=== PATIENT | male | born 1980 | race Caucasian/White ===

== ENCOUNTER 2019-07-18 09:21 | Inpatient (IN) | payer MEDICAID ==
[~2019-07-18] VITALS: Ht 165.1 cm; Wt 70.5 kg
[~2019-07-18 09:21] MED LIST: DOCU-28 PO; HYDR25SU32 RC
[2019-07-18] MEDS ORDERED: normal saline 1000ML IV soln IV ONE (09:55)
[2019-07-18 10:13] LABS: BASOPHILS # (AUTO) 0.1 X10'3 (0-0.2); BASOPHILS % (AUTO) 0.7 % (0-1); EOSINOPHILS # (AUTO) 0.2 X10'3 (0-0.9); HEMATOCRIT 41.3 % (42.0-52.0); LYMPHOCYTES # (AUTO) 3.5 X10'3 (1.1-4.8); MEAN CORPUSCULAR HEMOGLOBIN 31.1 PG (27.0-31.0); MEAN CORPUSCULAR HGB CONC 33.8 g/dL (33.0-36.5); MEAN CORPUSCULAR VOLUME 91.9 FL (78-98); MEAN PLATELET VOLUME 6.5 FL (7.4-10.4); MONOCYTES # (AUTO) 1.4 X10'3 (0-0.9); MONOCYTES % (AUTO) 7.2 % (2-12); NEUTROPHILS # (AUTO) 14.3 X10'3 (1.8-7.7); NEUTROPHILS % (AUTO) 73.1 % (42-75); PLATELET COUNT 553 X10'3 (140-440); RED CELL DISTRIBUTION WIDTH 13.9 % (11.5-14.5); WHITE BLOOD COUNT 19.6 X10'3 (4.5-11.0)
[2019-07-18] MEDS ORDERED: vancomycin/NS 1 GM ADD-VANTAGE 250 ML IV ONE (10:20)
[2019-07-18] MEDS ORDERED: piperacillin/tazo 3.375gm/50ml 50 ML IV ONE (10:20)
[2019-07-18 10:30] LABS: ALANINE AMINOTRANSFERASE 38 U/L (12-78); ALBUMIN 3.2 G/DL (3.4-5.0); ALBUMIN/GLOBULIN RATIO 0.7 (1.1-1.5); ALKALINE PHOSPHATASE 106 IU/L (46-116); ASPARTATE AMINO TRANSFERASE 17 U/L (10-37); CALCIUM 9.1 MG/DL (8.5-10.1); CHLORIDE 102 MMOL/L (99-107); CREATININE 1.13 MG/DL (0.60-1.10); GLUCOSE 92 MG/DL (70-104); POTASSIUM 3.6 MMOL/L (3.5-5.1); SODIUM 137 MMOL/L (135-145); TOTAL PROTEIN 7.7 G/DL (6.4-8.2); eGFR 72 ML/MIN
[2019-07-18] MEDS ORDERED: iohexol 300mg/ml 100ml inj. ONE (10:33)
[2019-07-18] MEDS ORDERED: VANCOMYCIN 1gm/H2O 200ml PB 200 ML IV ONE (10:45)
[2019-07-18] MEDS ORDERED: morphine 4 MG/ML inj SYRINge IV ONE (11:00)
[2019-07-18 11:22] LABS: ANION GAP 11 (8-16); BILIRUBIN,TOTAL 0.7 MG/DL (0.1-1.0); BLOOD UREA NITROGEN 8 MG/DL (7-18); BUN/CREATININE RATIO 7.1 (5.4-32.0); TOTAL CARBON DIOXIDE 23.9 MMOL/L (24-32)
[2019-07-18] MEDS ORDERED: magnesium hydroxide 30ml (MOM) UD suspension PO PRN (11:40)
[2019-07-18] MEDS ORDERED: morphine 2 MG/ML inj. syringe IV PRN (11:40)
[2019-07-18] MEDS ORDERED: acetaminophen 325mg tablet PO PRN (11:40)
[2019-07-18] MEDS ORDERED: ondansetron/PF 4mg/2ml inj IV PRN (11:40)
[2019-07-18] MEDS ORDERED: mag hydrox/Alum hydrox/simeth 30ml oral suspension PO PRN (11:40)
[2019-07-18] MEDS ORDERED: NO HOME MEDS (12:13)
[2019-07-18] MEDS: normal saline 1000ml 1,000 ML IV SCH ×3 (12:30→22:18)
[2019-07-18] MEDS ORDERED: HYDROmorphone inj. 0.5 MG/0.5 ML DISP.SYRIN IV ONE (14:25)
[2019-07-18 18:00] VITALS: BP 99/69
[2019-07-18] MEDS: HYDROcodone/acetaminophen 5mg/325mg tablet PO PRN ×2 (18:42→23:58)
[2019-07-18] MEDS: heparin, porcine 5000 units/ml vial SQ SCH (20:00)
--- NOTE | 2019-07-18 20:31 | NUR ---
pt with no pain to buttock wound. remains on clears. bp 98/65. sttes he is having episodes of profuse sweating. temp 99.1 orally.
--- NOTE | 2019-07-18 20:51 | NUR ---
Patient in room ED 15 going to rom 355B. I have received report from From GAL Kay and had the opportunity to ask questions and assume patient care.
--- NOTE | 2019-07-18 20:52 | NUR ---
Pt is refusing heparin SQ stating that he does not want blood thinners prior to his surgery. Receiving RN made aware.
[2019-07-18 21:00] VITALS: BP 99/69
--- NOTE | 2019-07-18 21:20 | NUR ---
2100:Patient arrived on unit via gurney with tech transporting. Tech asked him if he was able to walk to bed and get out of gurney on his own. He said, "yes." Gurney was parked outside of room,it was locked and lowered, side rail was lowered and patient attempted to get up but he rolled and fell on his left knee and hand. We reached to help and he got up and walked to the bed. He has a small scratch on his left forearm. Patient stated that he was fine. There were not any other issues from the fall . Will continue to monitor.
[2019-07-18] MEDS: VANCOMYCIN 1gm/H2O 200ml PB 200 ML IV SCH (22:19)
[2019-07-18] MEDS ORDERED: VANCOMYCIN LEVEL IV ONE (22:30)
[2019-07-18] MEDS: piperacillin/tazo 4.5gm/100ml 100 ML IV SCH (23:55)
[2019-07-19] VITALS (15 sets, daily range): BP systolic 97–148; BP diastolic 58–86
[2019-07-19 05:40] LABS: BASOPHILS # (AUTO) 0.1 X10'3 (0-0.2); EOSINOPHILS # (AUTO) 0.4 X10'3 (0-0.9); EOSINOPHILS % (AUTO) 2.9 % (0-6); HEMATOCRIT 39.5 % (42.0-52.0); HEMOGLOBIN 13.4 g/dl (14.0-17.9); LYMPHOCYTES # (AUTO) 2.2 X10'3 (1.1-4.8); LYMPHOCYTES % (AUTO) 14.4 % (21-51); MEAN CORPUSCULAR HEMOGLOBIN 31.5 PG (27.0-31.0); MEAN CORPUSCULAR HGB CONC 33.9 g/dL (33.0-36.5); MEAN CORPUSCULAR VOLUME 93.2 FL (78-98); MEAN PLATELET VOLUME 6.8 FL (7.4-10.4); MONOCYTES # (AUTO) 1.1 X10'3 (0-0.9); MONOCYTES % (AUTO) 7.3 % (2-12); NEUTROPHILS # (AUTO) 11.2 X10'3 (1.8-7.7); NEUTROPHILS % (AUTO) 74.4 % (42-75); PLATELET COUNT 525 X10'3 (140-440); RED BLOOD COUNT 4.24 X10'6 (4.70-6.10); RED CELL DISTRIBUTION WIDTH 14.2 % (11.5-14.5)
[2019-07-19] MEDS: HYDROcodone/acetaminophen 5mg/325mg tablet PO PRN ×3 (06:01→22:01)
[2019-07-19 06:11] LABS: ALBUMIN 2.7 G/DL (3.4-5.0); ANION GAP 11 (8-16); BLOOD UREA NITROGEN 6 MG/DL (7-18); BUN/CREATININE RATIO 6.1 (5.4-32.0); CALCIUM 8.8 MG/DL (8.5-10.1); CHLORIDE 105 MMOL/L (99-107); CREATININE 0.98 MG/DL (0.60-1.10); GLUCOSE 91 MG/DL (70-104); POTASSIUM 3.4 MMOL/L (3.5-5.1); SODIUM 142 MMOL/L (135-145); TOTAL CARBON DIOXIDE 25.6 MMOL/L (24-32); eGFR 85 ML/MIN
--- NOTE | 2019-07-19 06:30 | NUR ---
Patient in room [facility]. I have received report from GAL MARTE and had the opportunity to ask questions and assume patient care.
--- NOTE | 2019-07-19 06:30 | NUR ---
Problems reprioritized. Patient report given, questions answered & plan of care reviewed with GAL Kim.
[2019-07-19] MEDS: heparin, porcine 5000 units/ml vial SQ SCH ×2 (08:00→19:58)
[2019-07-19] MEDS: piperacillin/tazo 4.5gm/100ml 100 ML IV SCH ×2 (08:11→18:19)
[2019-07-19] MEDS: VANCOMYCIN 1gm/H2O 200ml PB 200 ML IV SCH ×2 (12:08→22:28)
[2019-07-19] MEDS ORDERED: lactose-reduced food (Ensure Enlive) - 237ml bottle PO SCH (13:00)
--- NOTE | 2019-07-19 13:17 | NUR ---
Malnutrition consult: Pt admit w/ perineal/gluteal abscess hx recurrent abscesses same region past 3 years requiring prior debridement per MD. Possible sepsis but no clinical concern for sepsis per ER MD note. Pt/SO seen by RD for written/verbal high protein ed w/ RD contact information provided and report wt loss past 3 month r/t abscess which is impacting pt ability to stool, pass gas, and when he does stool it nunn r/t abscess blocking anus. Pt reports lactose intolerance on inability to eat solids at this time r/t anal blockage from abscess so requested full liquid diet. Lactose intolerance limits pt to essentially clear liquids regimen though pt is agreeable to vanilla ensure enlive TIDWM; MD notified. Pt does report sweets and vanilla flavor smells are not appetizing but willing to try ONS. Pending MD ONS verification prior to sending on trays. Pt possibly to OR today for debridement per RN but still unsure at this time. Pt declines additional food preferences at this time and states most broths too salty and he is thirsty. Unfortunately current NPO status exacerbates this. At this time pt has no edema, no significant weakness, likely mild wt loss though no visible signs of severe muscle/fat wasting present and current wt pt stated. Pt does not meet minimum malnutrition criteria at this time. Will continue to monitor for additional protein needs given wound healing. Rec: 1. advance diet per MD to low-residue given pt fear of solids w/ current abscess effecting BM's 2. vanilla ensure enlive TIDWM 3. bowel care as needed 4. weekly wts 5. MVI for wound healing needs Addendum: 07/19/19 at [address] Amended: Links added.
[2019-07-19] MEDS ORDERED: BUPIVAcaine/PF 2.5 mg/ml (0.25%) 30ml vial ONE (14:53)
[2019-07-19] MEDS ORDERED: BUPIVACAINE liposomal/PF 13.3 MG/ML vial IM ONE (14:53)
--- NOTE | 2019-07-19 15:16 | NUR ---
Report given to GAL South down in recovery. Patient taken via OR nursing staff for surgery with Dr. Gallegos. Blood glucose assessment showed 88. Patient stable for transfer.
[2019-07-19] MEDS ORDERED: fentaNYL/PF 50MCG/1 ML 2ML syringe ONE ×2 (15:26→16:38)
[2019-07-19] MEDS ORDERED: midazolam 2 mg/2 ml injection ONE (15:26)
[2019-07-19] MEDS ORDERED: methylene blue (5mg/ml) 50mg/10ml ampul IV ONE (15:49)
[2019-07-19] MEDS ORDERED: sevoflurane 250ml liquid IH ONE (16:10)
--- NOTE | 2019-07-19 17:20 | NUR ---
Received from OR via BED, accompanied by Anesthesiologist DR DODSON-- and report given by Anesthesiolgist. PATIENT A&OX4, DENIES PAIN, V/S WNL, NEUROVASCULAR CHECKS INTACT, 20G PIV RUE, SCD ON, RECTAL DRESSING/PACKING WITH GAUZE AND FISHNET SHORTS WITH NO ACTIVE DRAINAGE SEEN AT THIS TIME.
[2019-07-19] MEDS ORDERED: ringers solution, lacted 1,000 ML IV SCH (17:21)
[2019-07-19] MEDS ORDERED: meperidine/PF 25mg/ml syringe ONE (17:23)
[2019-07-19] MEDS ORDERED: ondansetron/PF 4mg/2ml inj IV PRN (17:25)
[2019-07-19] MEDS ORDERED: morphine 4 MG/ML inj SYRINge IV PRN ×2 (17:25)
[2019-07-19] MEDS ORDERED: proCHLORperazine 10 MG/2 ml inj IV PRN (17:25)
[2019-07-19] MEDS ORDERED: meperidine/PF 25mg/ml syringe IV PRN ×2 (17:25)
[2019-07-19] MEDS ORDERED: acetaminophen 1,000mg/100ml IV 100 ML IV ONE (17:30)
[2019-07-19] MEDS: meperidine/PF 25mg/ml syringe IV PRN ×2 (17:32→17:43)
[2019-07-19] MEDS ORDERED: propofol inj 20 ML IV ONE (17:44)
[2019-07-19] MEDS ORDERED: ondansetron/PF 4mg/2ml inj ONE (17:44)
[2019-07-19] MEDS ORDERED: glycopyrrolate 0.2mg/ml inj ONE (17:44)
[2019-07-19] MEDS ORDERED: rocuronium 10mg/ml inj IV ONE (17:44)
[2019-07-19] MEDS ORDERED: neostigmine methylsulfate 1 MG/ML 10ml vial ONE (17:44)
[2019-07-19] MEDS ORDERED: LIDOcaine 2% (20mg/ml) 5ml vial ONE (17:44)
[2019-07-19] MEDS ORDERED: dexamethasone sod phosphate 4mg/ml inj. ONE (17:44)
--- NOTE | 2019-07-19 18:00 | NUR ---
PATIENT A&OX4, DENIES PAIN, V/S WNL, NEUROVASCULAR CHECKS INTACT, 20G PIV RUE, SCD ON, RECTAL DRESSING/PACKING WITH GAUZE AND FISHNET SHORTS WITH NO ACTIVE DRAINAGE SEEN AT THIS TIME. PATIENT TAKEN TO 355A WITH ALL BELONGINGS AND HOOKED UP TO MONITORS IN ROOM AND REPORT GIVEN TO RN WHO HAS TAKEN OVER PATIENT CARE.
--- NOTE | 2019-07-19 18:06 | NUR ---
Received patient to the floor with GAL Christiansen at bedside. Patient reports tolerable pain, post op vital signs started, pt alert and oriented x4
--- NOTE | 2019-07-19 18:09 | NUR ---
Problems reprioritized. Patient report given, questions answered & plan of care reviewed with GAL Mak.
[2019-07-19] MEDS ORDERED: potassium CL 10mEq/100ml bag 100 ML IV PRN ×2 (18:25)
[2019-07-19] MEDS ORDERED: potassium Cl 20 mEq SR tablet PO PRN (18:25)
--- NOTE | 2019-07-19 18:35 | NUR ---
Patient in room [facility]. I have received report from GAL Guardado and had the opportunity to ask questions and assume patient care.
[2019-07-19] MEDS: HYDROmorphone inj. 0.5 MG/0.5 ML DISP.SYRIN IV PRN (18:40)
--- NOTE | 2019-07-19 18:40 | NUR ---
Problems reprioritized. Patient report given, questions answered & plan of care reviewed with GAL Mak.
[2019-07-19] MEDS: lactobacillus rhamnosus 10,000 MMU CELLS/CAPSULE PO SCH (19:49)
[2019-07-19] MEDS: normal saline 1000ml 1,000 ML IV SCH (19:57)
[2019-07-19] MEDS: K and/or MAG REPLACEMENT MC SCH (20:00)
--- NOTE | 2019-07-19 20:30 | NUR ---
Patient refused his heparin shot. He was educated on the benefits of heparin. He still did not want it. He had taken off his post off vitals twice. I reapplied them and moved the machine on the side that his cuff was so that he didn't feel so trapped. He said that he would keep the cuff on. The tech reported that she witnessed him open his door and push the vital sign machine into the hallway. His post op vital were not done. Vitals that were taken post op will be charted. He also took his SCD s off. IV was beeping pressure high and he stated that he will rip it out if it continues to beep. I told him that the IV will beep pressure high when he bends his arm because of where it is placed. I had just been in there and put his IV pole on the same side that his IV was on. I also cleaned up his room.
--- NOTE | 2019-07-19 20:51 | NUR ---
Patient sorenson not voided yet this shift. Eben continue to monitor. Addendum: 07/19/19 at 2057 by Obdulio Ward RN Amended: Links added.
[2019-07-19] MEDS: potassium Cl 20 mEq SR tablet PO PRN (22:01)
[2019-07-20] VITALS: BP 111/62
[2019-07-20] MEDS: HYDROmorphone inj. 0.5 MG/0.5 ML DISP.SYRIN IV PRN (00:22)
[2019-07-20] MEDS: piperacillin/tazo 4.5gm/100ml 100 ML IV SCH ×4 (00:42→23:57)
[2019-07-20] MEDS: potassium Cl 20 mEq SR tablet PO PRN (03:02)
[2019-07-20] MEDS: HYDROcodone/acetaminophen 5mg/325mg tablet PO PRN ×6 (03:02→23:56)
[2019-07-20] MEDS: normal saline 1000ml 1,000 ML IV SCH ×3 (03:40→23:40)
[2019-07-20 04:58] VITALS: BP 110/65
[2019-07-20 05:30] LABS: BASOPHILS % (AUTO) 0.2 % (0-1); EOSINOPHILS % (AUTO) 0.1 % (0-6); HEMATOCRIT 36.6 % (42.0-52.0); HEMOGLOBIN 12.1 g/dl (14.0-17.9); LYMPHOCYTES # (AUTO) 1.1 X10'3 (1.1-4.8); LYMPHOCYTES % (AUTO) 7.6 % (21-51); MEAN CORPUSCULAR HEMOGLOBIN 30.5 PG (27.0-31.0); MEAN CORPUSCULAR HGB CONC 32.9 g/dL (33.0-36.5); MEAN CORPUSCULAR VOLUME 92.4 FL (78-98); MEAN PLATELET VOLUME 6.8 FL (7.4-10.4); MONOCYTES # (AUTO) 0.3 X10'3 (0-0.9); MONOCYTES % (AUTO) 1.9 % (2-12); NEUTROPHILS # (AUTO) 13.4 X10'3 (1.8-7.7); NEUTROPHILS % (AUTO) 90.2 % (42-75); PLATELET COUNT 557 X10'3 (140-440); RED BLOOD COUNT 3.97 X10'6 (4.70-6.10); RED CELL DISTRIBUTION WIDTH 13.8 % (11.5-14.5); WHITE BLOOD COUNT 14.8 X10'3 (4.5-11.0)
[2019-07-20 05:47] LABS: ALBUMIN 2.7 G/DL (3.4-5.0); ANION GAP 8 (8-16); BLOOD UREA NITROGEN 5 MG/DL (7-18); BUN/CREATININE RATIO 4.9 (5.4-32.0); CALCIUM 8.7 MG/DL (8.5-10.1); CHLORIDE 104 MMOL/L (99-107); CREATININE 1.02 MG/DL (0.60-1.10); GLUCOSE 134 MG/DL (70-104); POTASSIUM 3.7 MMOL/L (3.5-5.1); SODIUM 140 MMOL/L (135-145); TOTAL CARBON DIOXIDE 27.9 MMOL/L (24-32); eGFR 81 ML/MIN
--- NOTE | 2019-07-20 06:24 | NUR ---
Problems reprioritized. Patient report given, questions answered & plan of care reviewed with GAL Benito.
--- NOTE | 2019-07-20 06:57 | NUR ---
Patient in room [facility]. I have received report from Obdulio SANTO and had the opportunity to ask questions and assume patient care.
[2019-07-20 07:00] VITALS: BP 102/64
[2019-07-20] MEDS: lactobacillus rhamnosus 10,000 MMU CELLS/CAPSULE PO SCH ×2 (07:28→20:28)
[2019-07-20] MEDS: heparin, porcine 5000 units/ml vial SQ SCH ×2 (07:37→20:00)
[2019-07-20] MEDS: K and/or MAG REPLACEMENT MC SCH ×2 (08:00→20:00)
[2019-07-20] MEDS ORDERED: VANCOMYCIN LEVEL IV ONE (10:30)
[2019-07-20] MEDS: VANCOMYCIN 1gm/H2O 200ml PB 200 ML IV SCH ×2 (11:42→20:28)
[2019-07-20 12:20] VITALS: BP 134/92
--- NOTE | 2019-07-20 16:27 | NUR ---
Patient was clothed and disconnected from tubing, at time of medication administration. Patient stated he was going on a walk which I agreed but unknown to me patient had disconnected himself from his tubing bag and line had to be replaced upon finding this out. Patient also stated he was going to "get some fresh air," I did not hear this at time of patient leaving room, was under the impression that patient was going to be walking around the unit but techs notified me that patient was seen walking off the unit after using profanity at another tech he had a previous disagreement with. Security was notified of this, patient was not seen leaving but was found returning from outside. Patient was then notified of leaving unit is not allowed. Patient was agreeable.
[2019-07-20 18:00] VITALS: BP 125/70
--- NOTE | 2019-07-20 18:47 | NUR ---
Patient in room [facility]. I have received report from GAL Benito and had the opportunity to ask questions and assume patient care.
--- NOTE | 2019-07-20 18:49 | NUR ---
Problems reprioritized. Patient report given, questions answered & plan of care reviewed with Obdulio SANTO.
--- NOTE | 2019-07-20 19:12 | NUR ---
I went to speak with patient and before I left his room I asked if I could get him any water. He said," NO, I am ok, I am afraid of being poisoned". I asked him if he thought that I would poisoned him and he said ; no, I don't think you would. I am fine I have the IV running to hydrate me. I will notify kitchen to get bottled water up.
--- NOTE | 2019-07-20 19:57 | NUR ---
Tech is in room taking vitals. I went into fix IV "pressure high". Patient saw stated; " WOW, my BP is 125/70" I said, "yes better then what it was when you first got here." He replied; NO, I mean this is the first time that my vitals have been taken all day". He is making accusations that are not true. Day shift did chart vitals for both 0700 and 1200. Addendum: 07/20/19 at 2002 by Obdulio Ward RN Patient also stated that he has been avoided like the plaque all day.
--- NOTE | 2019-07-20 20:52 | NUR ---
I went in to hang abx and give medications. I also checked his surgical site. He informed me that he has been recording conversations because it it has been a "circus around here", per patients words. It was in regards, per him, that he had asked for a alcohol swab to wipea scratch off from when he fell on admit. He states that she told him the floors are washed 30 x a day and they are really clean so he did not need a wipe.
--- NOTE | 2019-07-21 00:13 | NUR ---
I went in to hang is 0000 abx and give patient a pain pill. I had asked him right before I grabbed his abx if he also wanted a pain pill. He had said, "yes." I came back with the two medications and he was staring up at the ceiling, with a flat affect. I asked him what his pain level was he answered the question. He continued to stare up at the ceiling while I hung up is abx. I asked if he was k, and he said;"ya." I hung the antibiotic and told him to let me know if his pain continued to bother him or he needed anything else. He did not respond. I will continue to monitor.
[2019-07-21 00:19] VITALS: BP 132/75
--- NOTE | 2019-07-21 01:31 | NUR ---
Patient is on his left side on his cell phone when I checked on him.I asked patient if he was doing alright. He said; "NO". I asked what was wrong. He told me that it was nothing that I could help him with. I said are you sure? I asked if he was in pain. He said, "No,don't worry about it. I told him if he needed anything to let me knnow. He shook his head yes.
[2019-07-21] MEDS: VANCOMYCIN 1gm/H2O 200ml PB 200 ML IV SCH (03:06)
--- NOTE | 2019-07-21 03:23 | NUR ---
I went in hang patients ABX. I asked if he was better. He said, no, and then he told me that he was documenting his experience here.He feels like he has been targeted and not treated right except for the the nights that I am working. I told him that I was sorry that he felt like this way. He told me I have not made it into his documentation, he is saving me for a WOW card. I listened and let patient vent. I told him documentation is a good thing to do.Patient plans to leave today even if he is not going to be medically discharged.
[2019-07-21] MEDS: HYDROcodone/acetaminophen 5mg/325mg tablet PO PRN ×2 (04:19→08:17)
[2019-07-21] MEDS: normal saline 1000ml 1,000 ML IV SCH (04:46)
[2019-07-21 05:45] LABS: BASOPHILS # (AUTO) 0.1 X10'3 (0-0.2); BASOPHILS % (AUTO) 0.6 % (0-1); EOSINOPHILS # (AUTO) 0.5 X10'3 (0-0.9); EOSINOPHILS % (AUTO) 5.6 % (0-6); HEMATOCRIT 33.7 % (42.0-52.0); HEMOGLOBIN 11.5 g/dl (14.0-17.9); LYMPHOCYTES # (AUTO) 3.2 X10'3 (1.1-4.8); MEAN CORPUSCULAR HEMOGLOBIN 31.4 PG (27.0-31.0); MEAN CORPUSCULAR VOLUME 92.2 FL (78-98); MEAN PLATELET VOLUME 6.4 FL (7.4-10.4); MONOCYTES # (AUTO) 0.6 X10'3 (0-0.9); MONOCYTES % (AUTO) 6.7 % (2-12); NEUTROPHILS # (AUTO) 4.5 X10'3 (1.8-7.7); NEUTROPHILS % (AUTO) 51.1 % (42-75); PLATELET COUNT 521 X10'3 (140-440); RED BLOOD COUNT 3.65 X10'6 (4.70-6.10); RED CELL DISTRIBUTION WIDTH 14.1 % (11.5-14.5); WHITE BLOOD COUNT 8.8 X10'3 (4.5-11.0)
[2019-07-21 05:56] LABS: ALBUMIN 2.8 G/DL (3.4-5.0); ANION GAP 8 (8-16); BLOOD UREA NITROGEN 2 MG/DL (7-18); BUN/CREATININE RATIO 1.8 (5.4-32.0); CALCIUM 8.5 MG/DL (8.5-10.1); CHLORIDE 106 MMOL/L (99-107); CREATININE 1.12 MG/DL (0.60-1.10); GLUCOSE 92 MG/DL (70-104); POTASSIUM 3.2 MMOL/L (3.5-5.1); SODIUM 144 MMOL/L (135-145); TOTAL CARBON DIOXIDE 30.2 MMOL/L (24-32); eGFR 73 ML/MIN
--- NOTE | 2019-07-21 06:15 | NUR ---
CHECKED ON PT DURING REPORT. PT SLEEPING IN BED COVERED WITH BLANKETS. WILL CONTINUE TO MONITOR PT.
--- NOTE | 2019-07-21 06:15 | NUR ---
Problems reprioritized. Patient report given, questions answered & plan of care reviewed with GAL Lea.
--- NOTE | 2019-07-21 07:02 | NUR ---
Patient in room [facility]. I have received report from ESTUARDO SANTO and had the opportunity to ask questions and assume patient care.
[2019-07-21] MEDS: heparin, porcine 5000 units/ml vial SQ SCH (08:00)
[2019-07-21] MEDS: potassium Cl 20 mEq SR tablet PO PRN (08:16)
[2019-07-21] MEDS: lactobacillus rhamnosus 10,000 MMU CELLS/CAPSULE PO SCH (08:16)
[2019-07-21] MEDS: piperacillin/tazo 4.5gm/100ml 100 ML IV SCH (08:16)
[2019-07-21] MEDS: K and/or MAG REPLACEMENT MC SCH (08:26)
--- NOTE | 2019-07-21 08:40 | NUR ---
PT WAS GIVEN ABD PAD FOR DRESSING CHANGE, MOD DRAINAGE ON PAD AT TIME OF CHANGE. CHANGED DRESSING IN MY PRESENCE. PACKING STILL IN PLACE.
--- NOTE | 2019-07-21 08:40 | NUR ---
DURING MED PASS PT STATES THAT HE HAS BEEN BEING TREATED POORLY. BOTH THE PT AND HIS FRIEND AT BEDSIDE HAD MULTIPLE COMPLAINTS. I LISTENED TO ALL COMPLAINTS AND REASSURED PT THAT I WOUND ATTEMPT TO RECTIFY WHAT I COULD WHILE HE WAS IN MY CARE. PT STATES THAT HE IS SO PARANOID THAT HE IS CHECKING BOTTLES FOR NEEDLE HOLES. PT REFUSED HEPARIN, STATES HE DOES NOT WANT TO BLEED TO . I EDUCATED PT ON THE RISKS OF BLOOD CLOTS, NABIL WITH PLATELETS BEING ELEVATED. EDUCATED PT THAT HE NEEDS TO AMBULATE HALLWAY, PT STATES THAT HE DOES NOT WANT TO LEAVE HIS ROOM BECAUSE OF THE BAD LOOKS HE GETS FROM STAFF. PT VERBALIZED UNDERSTANDING OF THE IMPORTANCE OF AMBULATING, STATES HE WILL WALK AROUND HIS ROOM. PT REQ TO BE ON CLEAR LIQ DIET, WILL DISCUSS WITH MD UPON ROUNDING.
--- NOTE | 2019-07-21 09:49 | NUR ---
PT WAS GIVEN ANOTHER ABD PAD FOR DRESSING CHANGE.
[2019-07-21] MEDS ORDERED: VANCOMYCIN LEVEL IV ONE (10:30)
[2019-07-21] MEDS ORDERED: HYDR-4353 PO (11:05)
[2019-07-21] MEDS ORDERED: CIPR-230 PO (11:09)
--- NOTE | 2019-07-21 11:39 | NUR ---
PT DISCHARGED IN STABLE CONDITION. IV DC CANULA INTACT. FOLLOW UP INSTRUCTIONS GIVEN, PT TO FOLLOW UP WITH WOUND CARE ON THURSDAY, AN APPT WAS ALREADY SET UP. PT EDUCATED ON WOUND CARE BY DR DIXON AND REINFORCED BY MY MYSELF. PT VERBALIZED UNDERSTANDING. ALL BELONGINGS IN HAND, PT TO GO BY WOUND CARE ON WAY OUT AND ENGAGEMENT ENGINEER RX FOR NORCO FROM DR DIXON. ALL QUESTIONS ANSWERED. Addendum: 07/21/19 at 1143 by Isis Blandon RN Amended: Links added.
--- NOTE | 2019-07-21 11:46 | NUR ---
DR DIXON AWARE PT HAS NOT HAD A BM SINCE 07/14/19. PT EDUCATED ON DIET AND HOW TO MAINTAIN CLEAN WOUND AFTER BM. PT VERBALIZED UNDERSTANDING.
== END 2019-07-21 11:57 | disposition home or self-care (01) | DRG 226 ==
LOC: ER 09:21 → ED HOLD 11:40 → SUR 3N 21:10
PROVIDERS: ADMIT Family Medicine; ATTEND Surgery
PROC: 0DBQ0ZZ Excision of Anus, Open Approach (ICD-10-PCS; principal; 2019-07-19 16:10)
DX: K60.3 Anal fistula (principal); F17.210 Nicotine dependence, cigarettes, uncomplicated; K62.89 Other specified diseases of anus and rectum; Z86.14 Personal history of Methicillin resistant Staphylococcus aureus infection
CPT/HCPCS: 36415; 74177; 80048; 80053; 80202; 82948; 83605; 84145; 85025; 87040; 87070; 87075; 87081; 87102; 96365; 96367; 96375; 99285; A4215; A4618; A6266; A6449; A7000; C9290; G0378; J0131; J1100; J1170; J1644; J2001; J2175; J2250; J2270; J2405; J2543; J2704; J2710; J3010; J3370; J3490; J7030; J7120; Q9967; Q9968

== ENCOUNTER 2019-07-25 09:00 | Outpatient (CLI) | payer MEDICAID ==
[~2019-07-25 09:00] MED LIST changes: +CIPR-230 PO; -DOCU-28 PO; +HYDR-4353 PO; -HYDR25SU32 RC; +NO HOME MEDS
== END 2019-07-25 11:00 | disposition home or self-care (01) ==
LOC: EDSTATUS 09:00 → WOUND CARE 09:00
PROVIDERS: ATTEND Surgery
DX: L98.492 Non-pressure chronic ulcer of skin of other sites with fat layer exposed (principal); L02.31 Cutaneous abscess of buttock; M19.90 Unspecified osteoarthritis, unspecified site; F17.210 Nicotine dependence, cigarettes, uncomplicated; Z86.14 Personal history of Methicillin resistant Staphylococcus aureus infection
CPT/HCPCS: A6266; G0463; A4663

== ENCOUNTER 2019-07-28 08:43 | Outpatient (CLI) | payer MEDICAID ==
[2019-07-28] MEDS ORDERED: LIDOcaine/PRILOcaine 5gm cream TP ONE (09:20)
== END 2019-07-28 10:17 | disposition home or self-care (01) ==
LOC: WOUND CARE 08:43 → EDSTATUS 09:00 → WOUND CARE 10:17
PROVIDERS: ATTEND Surgery
DX: L98.492 Non-pressure chronic ulcer of skin of other sites with fat layer exposed (principal); L02.31 Cutaneous abscess of buttock; M19.90 Unspecified osteoarthritis, unspecified site; F17.210 Nicotine dependence, cigarettes, uncomplicated; Z86.14 Personal history of Methicillin resistant Staphylococcus aureus infection
CPT/HCPCS: A6266; G0463; A4663

== ENCOUNTER 2019-08-01 08:45 | Outpatient (CLI) | payer MEDICAID ==
[2019-08-01] MEDS ORDERED: LIDOcaine/PRILOcaine 5gm cream TP ONE (09:29)
== END 2019-08-01 10:30 | disposition home or self-care (01) ==
LOC: WOUND CARE 08:45 → EDSTATUS 11:30
PROVIDERS: ATTEND Surgery
DX: L98.492 Non-pressure chronic ulcer of skin of other sites with fat layer exposed (principal); L02.31 Cutaneous abscess of buttock; M19.90 Unspecified osteoarthritis, unspecified site; F17.210 Nicotine dependence, cigarettes, uncomplicated; Z86.14 Personal history of Methicillin resistant Staphylococcus aureus infection
CPT/HCPCS: A6266; G0463; A4663

== ENCOUNTER 2019-08-04 08:40 | Outpatient (CLI) | payer MEDICAID ==
[2019-08-04] MEDS ORDERED: LIDOcaine/PRILOcaine 5gm cream TP ONE (09:03)
== END 2019-08-04 10:16 | disposition home or self-care (01) ==
LOC: WOUND CARE 08:40 → EDSTATUS 09:00 → WOUND CARE 10:16
PROVIDERS: ATTEND Surgery
DX: L98.492 Non-pressure chronic ulcer of skin of other sites with fat layer exposed (principal); L02.31 Cutaneous abscess of buttock; M19.90 Unspecified osteoarthritis, unspecified site; F17.210 Nicotine dependence, cigarettes, uncomplicated; Z86.14 Personal history of Methicillin resistant Staphylococcus aureus infection
CPT/HCPCS: A6266; G0463; A4663

== ENCOUNTER 2019-08-08 08:30 | Outpatient (CLI) | payer MEDICAID ==
[2019-08-08] MEDS ORDERED: LIDOcaine/PRILOcaine 5gm cream TP ONE ×2 (09:11)
== END 2019-08-08 10:26 | disposition home or self-care (01) ==
LOC: WOUND CARE 08:30 → EDSTATUS 09:00 → WOUND CARE 10:26
PROVIDERS: ATTEND Surgery
DX: L98.492 Non-pressure chronic ulcer of skin of other sites with fat layer exposed (principal); L02.31 Cutaneous abscess of buttock; M19.90 Unspecified osteoarthritis, unspecified site; F17.210 Nicotine dependence, cigarettes, uncomplicated; Z86.14 Personal history of Methicillin resistant Staphylococcus aureus infection
CPT/HCPCS: G0283; G0463

== ENCOUNTER 2019-08-29 08:50 | Day surgery (SDC) | payer MEDICAID ==
[~2019-08-29 08:50] MED LIST changes: -CIPR-230 PO
[2019-08-29] MEDS ORDERED: LIDOcaine 2% 5ml jelly ONE (09:55)
== END 2019-08-29 10:31 | disposition home or self-care (01) ==
LOC: WOUND CARE 08:50
PROVIDERS: ATTEND Surgery
DX: L98.492 Non-pressure chronic ulcer of skin of other sites with fat layer exposed (principal); L02.31 Cutaneous abscess of buttock; M19.90 Unspecified osteoarthritis, unspecified site; F17.210 Nicotine dependence, cigarettes, uncomplicated; Z86.14 Personal history of Methicillin resistant Staphylococcus aureus infection
CPT/HCPCS: 97597

== ENCOUNTER 2019-09-12 09:25 | Outpatient (CLI) | payer MEDICAID ==
[2019-09-12] MEDS ORDERED: LIDOcaine 2% 5ml jelly ONE (11:15)
== END 2019-09-12 11:58 | disposition home or self-care (01) ==
LOC: WOUND CARE 09:25 → EDSTATUS 09:30 → WOUND CARE 11:58
PROVIDERS: ATTEND Surgery
DX: T81.89XA Other complications of procedures, not elsewhere classified, initial encounter (principal); L98.492 Non-pressure chronic ulcer of skin of other sites with fat layer exposed; L02.31 Cutaneous abscess of buttock; M19.90 Unspecified osteoarthritis, unspecified site; F17.210 Nicotine dependence, cigarettes, uncomplicated; Z86.14 Personal history of Methicillin resistant Staphylococcus aureus infection; Y92.89 Other specified places as the place of occurrence of the external cause; Y83.8 Other surgical procedures as the cause of abnormal reaction of the patient, or of later complication, without mention of misadventure at the time of the procedure
CPT/HCPCS: A4663; G0463

== ENCOUNTER → 2019-10-18 | Day surgery (SDC) | payer MEDICAID ==
[~2019-10-18] VITALS: Ht 165.1 cm; Wt 68.1 kg
[~2019-10-18] MED LIST changes: +BUPIVAcaine/PF 2.5 mg/ml (0.25%) 30ml vial ONE; +LIDOcaine 2% (20mg/ml) 5ml vial ONE; +acetaminophen 1,000mg/100ml IV 100 ML IV PRN; +dexamethasone sod phosphate 4mg/ml inj. ONE; +dibucaine ointment 28gm RC ONE; +famotidine/PF 10 mg/ml inj IV ONE; +fentaNYL/PF 50MCG/1 ML 2ML syringe ONE; +meperidine/PF 25mg/ml syringe IV PRN; +midazolam 2 mg/2 ml injection ONE; +morphine 2 MG/ML inj. syringe IV PRN; +morphine 4 MG/ML inj SYRINge IV PRN; +ondansetron/PF 4mg/2ml inj IV PRN; +ondansetron/PF 4mg/2ml inj ONE; +piperacillin/tazo 3.375gm/50 ML IV ONE; +proCHLORperazine 10 MG/2 ml inj IV PRN; +propofol inj 20 ML IV ONE; +ringers solution, lacted 1,000 ML IV SCH; +sevoflurane 250ml liquid IH ONE
[2019-10-18 11:24] VITALS: BP 129/87
[2019-10-18 11:27] LABS: BASOPHILS # (AUTO) 0.1 X10'3 (0-0.2); BASOPHILS % (AUTO) 0.8 % (0-1); EOSINOPHILS # (AUTO) 0.3 X10'3 (0-0.9); EOSINOPHILS % (AUTO) 1.8 % (0-6); LYMPHOCYTES # (AUTO) 2.6 X10'3 (1.1-4.8); LYMPHOCYTES % (AUTO) 18.4 % (21-51); MEAN CORPUSCULAR HEMOGLOBIN 31.6 PG (27.0-31.0); MEAN CORPUSCULAR VOLUME 92.9 FL (78-98); MEAN PLATELET VOLUME 7.4 FL (7.4-10.4); NEUTROPHILS # (AUTO) 10.1 X10'3 (1.8-7.7); PRE OP HEMATOCRIT 43.2 % (42.0-52.0); PRE OP HEMOGLOBIN 14.7 g/dL (14.0-17.9); PRE OP PLATELET COUNT 373 X10'3 (140-440); RED BLOOD COUNT 4.65 X10'6 (4.70-6.10); RED CELL DISTRIBUTION WIDTH 16.5 % (11.5-14.5)
[2019-10-18 11:33] LABS: ALBUMIN 3.6 G/DL (3.4-5.0); ALBUMIN/GLOBULIN RATIO 0.8 (1.1-1.5); ALKALINE PHOSPHATASE 82 IU/L (46-116); BLOOD UREA NITROGEN 10 MG/DL (7-18); CALCIUM 9.3 MG/DL (8.5-10.1); CHLORIDE 103 MMOL/L (99-107); PRE OP ALT 35 U/L (30-65); PRE OP ANION GAP 8 (8-16); PRE OP AST 24 U/L (10-37); PRE OP BILIRUB, TOTAL 0.3 MG/DL (0.0-1.0); PRE OP GLUCOSE 96 MG/DL (70-104); PRE OP POTASSIUM 3.6 MMOL/L (3.4-5.1); PRE OP SODIUM 138 MMOL/L (135-145); TOTAL CARBON DIOXIDE 27.2 MMOL/L (24-32); TOTAL PROTEIN 7.9 G/DL (6.4-8.2)
[2019-10-18 11:36] LABS: BUN/CREATININE RATIO 8.7 (5.4-32.0); CREATININE 1.15 MG/DL (0.60-1.10); eGFR 71 ML/MIN
[2019-10-18 12:26] VITALS: BP 122/79
--- NOTE | 2019-10-18 12:26 | NUR ---
ARRIVED IN PACU VIA GURNEY FROM OR. DR HEREDIA INATTENDANCE. REPORT RECEIVED. ASLEEP. RESP EASY. VS STABLE
[2019-10-18 12:36] VITALS: BP 110/66
[2019-10-18 12:46] VITALS: BP 116/68
[2019-10-18 12:56] VITALS: BP 105/70
--- NOTE | 2019-10-18 13:02 | NUR ---
WOUND CLINIC TO CALL DR HELLER FOR POST OP PAIN MEDS FOR PT
--- NOTE | 2019-10-18 13:06 | NUR ---
UP DRESSED WITHOUT ASSISTANCE. TO CAR ACCOMPANIED BY NURSE
== END | disposition home or self-care (01) ==
LOC: WOUND CARE 10:15
PROVIDERS: ATTEND Nurse Practitioner Family
DX: K61.1 Rectal abscess (principal); M19.90 Unspecified osteoarthritis, unspecified site; Z86.14 Personal history of Methicillin resistant Staphylococcus aureus infection; Z98.890 Other specified postprocedural states
CPT/HCPCS: 36415; 46040; 80053; 85025; 87070; 87075; 87076; 87077; 87102; 87186; J1100; J2001; J2250; J2405; J2543; J2704; J3010; J3490; A4618; A6253; A6407; A6449; A7000; G0463; J0131; J0780; J2175; J2270; J7120

== ENCOUNTER 2019-10-28 13:39 | Outpatient (CLI) | payer MEDICAID ==
[~2019-10-28 13:39] MED LIST changes: -BUPIVAcaine/PF 2.5 mg/ml (0.25%) 30ml vial ONE; -LIDOcaine 2% (20mg/ml) 5ml vial ONE; -acetaminophen 1,000mg/100ml IV 100 ML IV PRN; -dexamethasone sod phosphate 4mg/ml inj. ONE; -dibucaine ointment 28gm RC ONE; -famotidine/PF 10 mg/ml inj IV ONE; -fentaNYL/PF 50MCG/1 ML 2ML syringe ONE; -meperidine/PF 25mg/ml syringe IV PRN; -midazolam 2 mg/2 ml injection ONE; -morphine 2 MG/ML inj. syringe IV PRN; -morphine 4 MG/ML inj SYRINge IV PRN; -ondansetron/PF 4mg/2ml inj IV PRN; -ondansetron/PF 4mg/2ml inj ONE; -piperacillin/tazo 3.375gm/50 ML IV ONE; -proCHLORperazine 10 MG/2 ml inj IV PRN; -propofol inj 20 ML IV ONE; -ringers solution, lacted 1,000 ML IV SCH; -sevoflurane 250ml liquid IH ONE
== END 2019-10-28 14:38 | disposition home or self-care (01) ==
LOC: WOUND CARE 13:39 → EDSTATUS 14:00 → WOUND CARE 14:38
PROVIDERS: ATTEND Nurse Practitioner
DX: T81.89XA Other complications of procedures, not elsewhere classified, initial encounter (principal); L98.492 Non-pressure chronic ulcer of skin of other sites with fat layer exposed; Z98.890 Other specified postprocedural states; Z86.14 Personal history of Methicillin resistant Staphylococcus aureus infection; Y83.8 Other surgical procedures as the cause of abnormal reaction of the patient, or of later complication, without mention of misadventure at the time of the procedure; Y92.89 Other specified places as the place of occurrence of the external cause
CPT/HCPCS: G0463

== ENCOUNTER 2019-10-31 08:45 | Day surgery (SDC) | payer MEDICAID ==
[2019-10-31] MEDS ORDERED: LIDOcaine 2% 5ml jelly ONE (08:48)
== END 2019-10-31 09:15 | disposition home or self-care (01) ==
LOC: WOUND CARE 08:45
PROVIDERS: ATTEND Nurse Practitioner
DX: T81.89XD Other complications of procedures, not elsewhere classified, subsequent encounter (principal); L98.492 Non-pressure chronic ulcer of skin of other sites with fat layer exposed; M19.90 Unspecified osteoarthritis, unspecified site; F17.210 Nicotine dependence, cigarettes, uncomplicated; Z98.890 Other specified postprocedural states; Z86.14 Personal history of Methicillin resistant Staphylococcus aureus infection; Y83.8 Other surgical procedures as the cause of abnormal reaction of the patient, or of later complication, without mention of misadventure at the time of the procedure
CPT/HCPCS: 97597

== ENCOUNTER 2019-11-07 08:44 | Outpatient (CLI) | payer MEDICAID ==
[2019-11-07] MEDS ORDERED: LIDOcaine 2% 5ml jelly ONE (09:02)
== END 2019-11-07 09:27 | disposition home or self-care (01) ==
LOC: WOUND CARE 08:44
PROVIDERS: ATTEND Nurse Practitioner
DX: T81.89XD Other complications of procedures, not elsewhere classified, subsequent encounter (principal); L98.492 Non-pressure chronic ulcer of skin of other sites with fat layer exposed; M19.90 Unspecified osteoarthritis, unspecified site; F17.210 Nicotine dependence, cigarettes, uncomplicated; Z98.890 Other specified postprocedural states; Z86.14 Personal history of Methicillin resistant Staphylococcus aureus infection; Y83.8 Other surgical procedures as the cause of abnormal reaction of the patient, or of later complication, without mention of misadventure at the time of the procedure
CPT/HCPCS: 97597; G0463

== ENCOUNTER 2019-11-14 08:30 | Day surgery (SDC) | payer MEDICAID ==
[2019-11-14] MEDS ORDERED: LIDOcaine 2% 5ml jelly ONE (08:39)
== END 2019-11-14 09:20 | disposition home or self-care (01) ==
LOC: WOUND CARE 08:30
PROVIDERS: ATTEND Nurse Practitioner
DX: T81.89XD Other complications of procedures, not elsewhere classified, subsequent encounter (principal); L98.492 Non-pressure chronic ulcer of skin of other sites with fat layer exposed; M19.90 Unspecified osteoarthritis, unspecified site; F17.210 Nicotine dependence, cigarettes, uncomplicated; Z98.890 Other specified postprocedural states; Z86.14 Personal history of Methicillin resistant Staphylococcus aureus infection; Y83.8 Other surgical procedures as the cause of abnormal reaction of the patient, or of later complication, without mention of misadventure at the time of the procedure
CPT/HCPCS: 97597